=== PATIENT | male | born 1960 | race Hispanic/Latino ===

== ENCOUNTER 2024-05-29 16:14 | Emergency (ER) | payer SELFPAY ==
[2024-05-29 16:25] VITALS: BP 132/77; PULSE 69; RESP 14; TEMP 37; O2SAT 97
--- NOTE | 2024-05-29 16:44 | ED.MALEGU ---
HPI - Male Genitourinary General Chief complaint: Urogenital-Male Stated complaint: Male Problems Time Seen by Provider: 05/29/24 16:44 Source: patient Mode of arrival: ambulatory Limitations: no limitations History of Present Illness HPI Narrative: 64 yo M presents with c/o itching, redness, swelling, irritation to tip of penis. hx of similar symptoms and was given ketoconazole for yeast infection. Not sexually active. all systems reviewed and negative except as noted above. Related Data Home Medications ?Medication ?Instructions ?Recorded ?Confirmed ?Last Taken ?Type atorvastatin 40 mg tablet mg 05/29/24 Unknown History empagliflozin 25 mg tablet mg 05/29/24 Unknown History (Jardiance) lisinopril 10 mg tablet mg 05/29/24 Unknown History loratadine 10 mg tablet mg 05/29/24 Unknown History metformin 1,000 mg tablet mg 05/29/24 Unknown History semaglutide 7 mg tablet (Rybelsus) mg PO 05/29/24 Unknown History tamsulosin 0.4 mg capsule mg PO 05/29/24 Unknown History Allergies Allergy/AdvReac Type Severity Reaction Status Date / Time No Known Allergies Allergy Unknown Verified 05/29/24 16:24 Review of Systems Review of Systems: CONSTITUTIONAL: Denies fever, chills, or sweats. EYES: Denies visual changes, redness, or discharge. ENT: Denies rhinorrhea, congestion, sore throat, or otalgia. CARDIOVASCULAR: Denies chest pain, palpitations, or edema. RESPIRATORY: Denies cough or dyspnea. GASTROINTESTINAL: Denies abdominal pain, nausea, vomiting, or diarrhea. GENITOURINARY: Denies dysuria or hematuria. SKIN: Denies rash or itching. Reports redness, swelling, irritation and itching to Head of penis. MUSCULOSKELETAL: Denies back pain, joint pain, or myalgia. NEUROLOGIC: Denies headache, numbness, or weakness. PSYCHIATRIC: Denies anxiety or depression. All other systems reviewed are negative, except as documented in HPI. PMFSH Social History Social History Gender identity (if verbalized by the patient): Male Comments At time of signature, agree with nursing past medical, surgical, social and family history. There is no relevant family history pertinent to the presenting complaint. Exam Narrative: GENERAL: This is a well-nourished, well-developed patient, in no apparent distress. HEAD: normocephalic, atraumatic. EYES: PERRL. Sclera clear/white. Vision is grossly intact. EARS: External ears normal NOSE: External nose normal NECK: Neck supple, non-tender without lymphadenopathy, masses or thyromegaly. CARDIOVASCULAR: Regular rate and rhythm without murmurs, gallops, or rubs. RESPIRATORY: Clear to auscultation. Breath sounds equal bilaterally. No wheezes, rales, or rhonchi. urogenital: patient is uncircumcised. Foreskin was retracted, head of penis is erythematous and mild swelling with white thick drainage. excoriated around urethral opening. ([place] Neil chaperoned) SKIN: warm, Dry, intact with no suspicious lesions or rash, good texture and turgor. NEURO: awake, alert, and oriented to person, place and time. There were no obvious focal neurologic abnormalities. EXTREMITIES: No joint tenderness, effusion, or edema noted. Course Course Level of Care: Express Care Visit Vital Signs Vital signs: Vital Signs Temperature 37.0 C 05/29/24 16: Pulse Rate 69 05/29/24 16:25 Respiratory Rate 14 05/29/24 16:25 Blood Pressure 132/77 05/29/24 16:25 Pulse Oximetry 97 05/29/24 16:25 Oxygen Delivery Room Air 05/29/24 16:25 Temperature 37.0 C 05/29/24 16:25 Pulse Rate 69 05/29/24 16:25 Respiratory Rate 14 05/29/24 16:25 Blood Pressure 132/77 05/29/24 16:25 Pulse Oximetry 97 05/29/24 16:25 Oxygen Delivery Room Air 05/29/24 16:25 Reviewed MDM - Male Genitourinary MDM Narrative Medical decision making narrative: Please be advised this is a medical document. It is intended for [id number] communication. It is written in medical language and may contain unfamiliar abbreviations or verbiage. Medical documents are intended to carry relevant information, facts as evident, and the clinical opinion of the practitioner at the time of the encounter. This report may have been done utilizing a voice recognition system. Attempts have been made to correct errors. However, there may be uncorrected grammatical, spelling, and recognition errors present. The file time of this note does not necessarily represent the time of service. Discharge Plan Discharge Clinical Impression: Acute balanitis due to infection Patient Disposition: Home, Self-Care Condition: Stable Instructions: Antibiotic Form, Adatis (ED) Additional Instructions: Apply antifungal cream as prescribed. Take antibiotic until gone. Apply steroid cream sparingly to affected area 2 to 3 times a day to treat itching. Continue with normal hygiene, washing with soap and water. See your doctor if not improving. Patient Language: Sammarinese Prescriptions: New ketoconazole 2 % cream 1 applic topical BID 10 Days Qty: 30 0RF hydrocortisone [Cortisone (hydrocortisone)] 1 % cream 1 applic topical TID PRN (Reason: itching) Qty: 28.4 0RF cephalexin 500 mg capsule 500 mg PO Q8H 7 Days Qty: 21 0RF No Action atorvastatin 40 mg tablet tamsulosin 0.4 mg capsule PO metformin 1,000 mg tablet lisinopril 10 mg tablet loratadine 10 mg tablet Jardiance 25 mg tablet Rybelsus 7 mg tablet PO Follow-up/Referrals: Robert,SYEDA Samaniego [Primary Care Provider] - Time of Disposition: 16:57
== END 2024-05-29 17:05 | disposition home or self-care (01) ==
PROVIDERS: Emergency Provider Nurse Practitioner Family; PCP Physician Assistant
DX: N48.1 Balanitis (principal)
CPT/HCPCS: 99213; G0463